=== PATIENT | male | born 1965 | race Caucasian/White ===

== ENCOUNTER 2017-12-31 13:19 | Emergency (ER) | payer MEDICARE ==
[2017-12-31 15:14] VITALS: BP 114/77
--- NOTE | 2017-12-31 15:56 | UC ---
Skin Complaint HPI - HPI Summary HPI Summary: pt noted some tingly burning to his forehead saturday pm. saturday he noted a rash to his central forehead that is getting bigger. there is no pain or fever. he has had cellulitis in the past and notes this is different. no relief with neosporin. - History of Current Complaint Chief Complaint: UCSkin Time Seen by Provider: 12/31/17 15:49 Stated Complaint: RASH ON FOREHEAD Hx Obtained From: Patient Onset/Duration: Gradual Onset Timing: Constant Pain Intensity: 0 - Allergy/Home Medications Allergies/Adverse Reactions: Allergies Allergy/AdvReac Type Severity Reaction Status Date / Time Sulfa (Sulfonamide Allergy Hives Verified 12/31/17 15:15 Antibiotics) Home Medications: Home Medications Acetaminophen [Acetaminophen ER] 650 mg PO DAILY 12/31/17 [History Confirmed 09/19] Review of Systems Constitutional: Negative Skin: Rash Eyes: Negative ENT: Negative Respiratory: Negative Cardiovascular: Negative Gastrointestinal: Negative Genitourinary: Negative Motor: Negative Neurovascular: Negative Musculoskeletal: Negative Neurological: Negative Psychological: Negative Is Patient Immunocompromised?: No All Other Systems Reviewed And Are Negative: Yes PMH/Surg Hx/FS Hx/Imm Hx - Additional Past Medical History Additional PMH: cellulitis on leg - Surgical History Surgical History: Yes Surgery Procedure, Year, and Place: bariatric surgery 2013. [place]. T&A - Family History Known Family History: Positive: None - Social History Occupation: Employed Full-time Lives: With Family Alcohol Use: Occasionally Substance Use Type: None Smoking Status (MU): Heavy Every Day Tobacco Smoker - Immunization History Vaccination Up to Date: Yes Physical Exam Triage Information Reviewed: Yes Appearance: Well-Appearing Vital Signs: Initial Vital Signs Temp 97.9 F 12/31/17 15:10 Pulse 60 12/31/17 15:10 Resp 18 12/31/17 15:10 BP 114/77 12/31/17 15:10 Pulse Ox 99 12/31/17 15:10 Vital Signs Reviewed: Yes Eyes: Positive: Conjunctiva Clear ENT: Positive: Pharynx normal, TMs normal, Other - no auricular adenopathy. Negative: Nasal congestion, Nasal drainage Neck: Positive: Supple, Nontender, No Lymphadenopathy Respiratory: Positive: Lungs clear, Normal breath sounds Cardiovascular: Positive: RRR, No Murmur Abdomen Description: Positive: Nontender, No Organomegaly, Soft Bowel Sounds: Positive: Present Musculoskeletal: Positive: ROM Intact Neurological: Positive: Alert Psychological: Positive: Age Appropriate Behavior Skin Exam: Normal Skin: Positive: rashes - moderate sized almost confluent oval shaped rash to center for forehead and second area of 1cm to L of rash. areas are red, raised and moist to center of larger area. non tender and not warm. no scale, not petechial-viral culture obtained. Course/Dx - Course Course Of Treatment: non toxic, not fungal and not c/w cellulitis. ? herpetic, viral culture is pending. pattern not suggestive of shingles. pattern somewhat c /w hat rim thus a contact dermatitis is possible. will d/c neosporin as it is not helping. will tx low dose po steroid x 3 days and refer to dermatology. - Diagnoses Provider Diagnoses: acute rash to forehead Discharge - Sign-Out/Discharge Documenting (check all that apply): Discharge/Admit/Transfer - Discharge Plan Condition: Stable Disposition: HOME Prescriptions: predniSONE TAB* [Deltasone TAB*] 20 mg PO DAILY #3 tab Patient Education Materials: Acute Rash (ED) Referrals: Jonn Dean MD [Medical Doctor] - As Soon As Possible Additional Instructions: STOP THE NEOSPORIN. - Billing Disposition and Condition Condition: STABLE Disposition: HOME
== END 2017-12-31 16:13 | disposition home or self-care (01) ==
LOC: UCCORT 13:19
DX: R21 Rash and other nonspecific skin eruption (principal); Z88.2 Allergy status to sulfonamides
CPT/HCPCS: 87529; 87798; 99202; G0463

== ENCOUNTER 2019-06-30 10:52 | Emergency (ER) | payer MEDICARE ==
[2019-06-30 11:35] VITALS: BP 136/80
--- NOTE | 2019-06-30 12:25 | UC ---
UC General HPI - HPI Summary HPI Summary: Patient presents to urgent care for evaluation of gross hematuria that started today. Patient states approximately one hour prior to arrival he was at [facility]. Patient states when he went to the restroom he passed bright red blood with some clots. Patient has had 2 more episodes of similar since he's been here. Patient has never had anything like this before patient denies nausea or vomiting. No back pain. No trauma. No penile pain. No dysuria or hematuria. No difficulty with urgency. Patient without any blood in his stool. No diarrhea. No trauma. No pain with erection or ejaculation. Patient is not on any blood thinners. Patient does take Motrin intermittently. Patient does not have a primary care provider since coming to call in 2 years ago. Patient does have a history kidney stones and states this feels nothing like this. Patient does smoke one plus packs of cigarettes a day. Patient denies any trauma. Patient denies any penile discharge, itching, or lesions. Patient's medications reviewed this visit. - History of Current Complaint Chief Complaint: UCGU Stated Complaint: BLOOD IN URINE Time Seen by Provider: 06/30/19 11:55 Hx Obtained From: Patient, Family/Bottle Hop Pain Intensity: 0 - Allergy/Home Medications Allergies/Adverse Reactions: Allergies Allergy/AdvReac Type Severity Reaction Status Date / Time Sulfa (Sulfonamide Allergy Hives Verified 06/30/19 11:26 Antibiotics) Home Medications: Home Medications Ibuprofen TAB* [Advil TAB*] 400 mg PO Q6H PRN 06/30/19 [History Confirmed ] PMH/Surg Hx/FS Hx/Imm Hx Previously Healthy: Yes - Surgical History Surgical History: Yes Surgery Procedure, Year, and Place: bariatric surgery 2013. [place]. T&A - Family History Known Family History: Positive: Non-Contributory - Social History Occupation: Employed Full-time Lives: With Family Alcohol Use: Occasionally Substance Use Type: None Smoking Status (MU): Heavy Every Day Tobacco Smoker Type: Cigarettes Amount Used/How Often: 1 ppd Length of Time of Smoking/Using Tobacco: over 25 yrs Have You Smoked in the Last Year: Yes - Immunization History Vaccination Up to Date: Yes Review of Systems All Other Systems Reviewed And Are Negative: Yes Constitutional: Positive: Negative Skin: Positive: Negative - Vital Genitourinary: Positive: Hematuria Is Patient Immunocompromised?: No Physical Exam - Summary Physical Exam Summary: Vital Signs Reviewed: Yes A+Ox3, no distress Eyes: Conjunctiva Clear, ENT: Hearing grossly normal mmoist, no exudate, no erythema Neck: Positive: Supple Respiratory: Positive: No respiratory distress, No accessory muscle use + CTA throughout no w/r Cardiovascular: RRR nl s1, s2 no m/r CBT <2 sec abd soft no cva Musculoskeletal Exam: ROSE x 4 without difficulty Strength Intact, ROM Intact Neurological: Positive: Alert, + sensation throughout Psychological: Positive: Normal Response To examiner Skin: Positive: no rash, no ecchymosis Triage Information Reviewed: Yes Vital Signs: Initial Vital Signs Temp 98.2 F 06/30/19 11:27 Pulse 65 06/30/19 11:27 Resp 16 06/30/19 11:27 BP 136/80 06/30/19 11:27 Pulse Ox 99 06/30/19 11:27 Course/Dx - Course Course Of Treatment: Patient presents to urgent care reporting gross hematuria started 1 hour prior to arrival. Patient states he had bright red blood and clots. Patient has 2 more episodes of similar symptoms. Patient without any complaints. Patient does have a remote history of kidney stones but states this feels nothing like that. Patient is not on any anticoagulation. Patient does not have a PCP locally. On exam vital signs are stable. Patient in no distress. Patient's urinalysis was positive for US except for glucose. A long discussion with patient and his uncle who is here with him. Worried the patient may have some underlying pathology that can't test for here to urgent care. Recommend patient to the emergency department. After discussion patient in agreement. I spoke to Sunita Schmid, nurse practitioner in the emergency department and aware pt coming POV. - Diagnoses Provider Diagnosis: Hematuria Discharge ED - Sign-Out/Discharge Documenting (check all that apply): Patient Departure All imaging exams completed and their final reports reviewed: No Studies - Discharge Plan Condition: Stable Disposition: HOME-RECOMMEND TO ED Patient Education Materials: Hematuria (ED) Referrals: Non Staff,Doctor [Primary Care Provider] - Additional Instructions: The doctor that evaluated you today thinks that you need additional testing that can be completed the emergency department. It is recommended that you go directly to emergency department for further evaluation. This evaluation included blood work or imaging. This testing will be directed and decided by the provider that evaluates you at the emergency department. If pain becomes worse, you feel lightheaded, you have uncontrolled vomiting, or you have any other concerns while you are being driven to emergency department as recommended to pullover contact 911. You will be triaged and treated according to the process at the emergency department where you are evaluated. - Billing Disposition and Condition Condition: STABLE Disposition: Home-Recommend to ED
== END 2019-06-30 12:21 | disposition home health service (06) ==
LOC: UCCORT 10:52
DX: R31.9 Hematuria, unspecified (principal); F17.210 Nicotine dependence, cigarettes, uncomplicated; Z87.442 Personal history of urinary calculi; Z88.2 Allergy status to sulfonamides
CPT/HCPCS: 81003; 87086; 99212; G0463

== ENCOUNTER 2019-11-13 10:09 | Emergency (ER) | payer MEDICARE ==
--- OUTSIDE RECORDS SUMMARY | 2019-11-13 10:23 | XMS REPORT | Continuity of Care Document ---
:1965 External Reference #:[id number] Author Name Adriel Delgado M.D. Address [address] [place] [address] Care Team Providers Name Role Phone Adriel Delgado M.D. - Urology Care Team Information Communication Technician [phone] Problems Active Problems Provider Date Malignant tumor of urinary bladder Adriel Delgado M.D. Onset: 10/12/2019 Social History Type Date Description Comments Sex Unknown Tobacco Use Start: Unknown Heavy tobacco smoker (more than 10 cigarettes/day) Smoking Status Reviewed: 08/28/19 Heavy tobacco smoker (more than 10 cigarettes/day) Allergies, Adverse Reactions, Alerts Active Allergies Reaction Severity Comments Date Sulfa Drugs Flushing, Hives, Itching Severe 07/02/2019 Medications Active Medications SIG Qnty Indications Ordering Provider Date Keflex 1 by mouth once 1caps Adriel Delgado, 10/12/2019 500mg Capsules given in office M.D. before procedure - verbal order from Dr. Delgado Ibuprofen 2 Times A Day Unknown 400mg Tablets History Medications Oxybutynin Chloride 1 by mouth every 30tabs Adriel Delgado, 07/03/2019 - ER day M.D. 10/12/2019 10mg Tablets ER 24HR Immunizations Description No Information Available Vital Signs Date Vital Result Comment 10/12/2019 1:28pm BP Systolic 139 mmHg BP Diastolic 76 mmHg Body Temperature 97.8 F Heart Rate 78 /min Respiratory Rate 16 /min Height 67.5 inches 5'7.50" Weight 214.00 lb Pain Level 0 BMI (Body Mass Index) 33.0 kg/m2 BSA (Body Surface Area) 2.09 m2 [place] body weight in kilograms 68 kg O2 % BldC Oximetry 97 % 07/06/2019 9:20am BP Systolic 132 mmHg BP Diastolic 75 mmHg Body Temperature 99.0 F Heart Rate 71 /min Respiratory Rate 16 /min Height 67.5 inches 5'7.50" Weight 187.00 lb Pain Level 0 BMI (Body Mass Index) 28.9 kg/m2 BSA (Body Surface Area) 1.98 m2 [place] body weight in kilograms 68 kg O2 % BldC Oximetry 96 % Results Test Acquired Date Facility Test Result H/L Range Note Urine Dipstick 10/12/2019 [facility] Inhouse Ua Color Yellow Yellow Ua Clarity Clear Clear Ua Leuko Negative Negative Ua Nitrite Negative Low Ua Urobilinogen 0.2 0.2 - 1.0 E.U./L Ua Protein Negative Negative Ua PH 6.0 Low 6.5-7.5 Ua Blood Negative Negative Ua Specific [place] 1.030 1.010-1.030 Ua Ketones Negative Negative Ua Bilirubin Negative Negative Ua Glucose Negative Negative GFR/Bsa 06/30/2019 N2N/CCD Import Estimated GFR >60 >60 pred.black SerPl () MDRD-ArVRat BUN/Creat SerPl 06/30/2019 N2N/CCD Import BUN/Creatinine 26.6 Ratio Sodium 06/30/2019 N2N/CCD Import Sodium Level 139 136-145 SerPl-sCnc Potassium 06/30/2019 N2N/CCD Import Potassium Level 4.1 3.5-5.1 SerPl-sCnc Chloride 06/30/2019 N2N/CCD Import Chloride Level 107 98-107 SerPl-sCnc Co2 SerPl-sCnc 06/30/2019 N2N/CCD Import Carbon Dioxide 29 21-32 Level Anion Gap 06/30/2019 N2N/CCD Import Anion Gap 3 Low 8-16 SerPl-sCnc Calcium 06/30/2019 N2N/CCD Import Calcium Level 8.7 8.5-10.1 SerPl-mCnc Prot SerPl-mCnc 06/30/2019 N2N/CCD Import Total Protein 7.8 6.4-8.2 Albumin 06/30/2019 N2N/CCD Import Albumin 3.4 3.4-5.0 SerPl-mCnc Globulin Ser 06/30/2019 N2N/CCD Import Globulin 4.4 High 1.9-4.3 Calc-mCnc Albumin/Glob 06/30/2019 N2N/CCD Import Albumin/Globulin 0.8 SerPl Ratio Bilirub 06/30/2019 N2N/CCD Import Total Bilirubin 0.4 0.2-1.0 SerPl-mCnc Ast SerPl-cCnc 06/30/2019 N2N/CCD Import Aspartate Amino 10 Low 15-37 Transf (Ast/Sgot) Alt SerPl-cCnc 06/30/2019 N2N/CCD Import Alanine 23 12-78 Aminotransferase (Alt/SGPT) Alp SerPl-cCnc 06/30/2019 N2N/CCD Import Alkaline 65 45-117 Phosphatase Color Ur Auto 06/30/2019 N2N/CCD Import Urine Color Red Yellow Appearance Ur 06/30/2019 N2N/CCD Import Urine Clarity Cloudy Clear Glucose Ur Ql 06/30/2019 N2N/CCD Import Urine Glucose (Ua) Negative Negative Strip.auto Bilirub Ur Ql 06/30/2019 N2N/CCD Import Urine Bilirubin Negative Negative Strip.auto Ketones Ur Ql 06/30/2019 N2N/CCD Import Urine Ketones Negative Negative Strip.auto Sp Gr Ur 06/30/2019 N2N/CCD Import Urine Specific 1.018 1.010-1.030 Refractometry [place] Hgb Ur Ql 06/30/2019 N2N/CCD Import Urine Blood Large High Negative Strip.auto pH Ur Strip.auto 06/30/2019 N2N/CCD Import Urine pH 6.5 6.5-7.5 Prot Ur Ql 06/30/2019 N2N/CCD Import Urine Protein 100 High Negative Strip.auto Urobilinogen Ur 06/30/2019 N2N/CCD Import Urine Urobilinogen < 2.0 < 2.0 Ql Strip.auto Nitrite Ur Ql 06/30/2019 N2N/CCD Import Urine Nitrite Negative Negative Strip.auto Leukocyte 06/30/2019 N2N/CCD Import Urine Leukocyte Small High Negative esterase Ur Ql Esterase Strip.auto Lab Results 06/30/2019 N2N/CCD Import Urine RBC > 50 High 0-2 WBC #/area UrnS 06/30/2019 N2N/CCD Import Urine WBC 3-5 0-5 HPF Miscellaneous 06/30/2019 N2N/CCD Import N/A Test(s) studies added WBC # XXX Auto 06/30/2019 N2N/CCD Import White Blood Count 9.0 3.4-10.5 RBC # Bld Auto 06/30/2019 N2N/CCD Import Red Blood Count 5.15 4.20-5.80 Hgb Bld-mCnc 06/30/2019 N2N/CCD Import Hemoglobin 16.3 12.8-17.0 Hct VFr Bld Auto 06/30/2019 N2N/CCD Import Hematocrit 48.9 High 38.0- 48.0 MCV RBC Auto 06/30/2019 N2N/CCD Import Mean Corpuscular 95.0 80.0-96.0 Volume MCH RBC Qn Auto 06/30/2019 N2N/CCD Import Mean Corpuscular 31.7 27.0- 33.0 Hemoglobin MCHC RBC 06/30/2019 N2N/CCD Import Mean Corpuscular 33.3 31.7-36.0 Auto-mCnc Hemoglobin Concent Platelet # Bld 06/30/2019 N2N/CCD Import Platelet Count 228 155-360 Auto RDW RBC Auto 06/30/2019 N2N/CCD Import Red Cell 46.9 36-51 Distribution Width RDW RBC Auto-Rto 06/30/2019 N2N/CCD Import RDW Coefficient of 13.4 11.6- 15.8 Variation PMV Bld Auto 06/30/2019 N2N/CCD Import Mean Platelet 11.0 High 6.6-10.6 Volume Neutrophils/leuk 06/30/2019 N2N/CCD Import Neutrophils (%) 59.6 33.0- 73.0 NFr Bld Auto (Auto) Lymphocytes/leuk 06/30/2019 N2N/CCD Import Lymphocytes (%) 26.2 20.0- 42.0 NFr Bld Auto (Auto) Monocytes/leuk 06/30/2019 N2N/CCD Import Monocytes (%) 10.7 High 0.0- 10.0 NFr Bld Auto (Auto) Eosinophil/leuk 06/30/2019 N2N/CCD Import Eosinophils (%) 3.0 0.0-6.6 NFr Bld Auto (Auto) Basophils/leuk 06/30/2019 N2N/CCD Import Basophils (%) 0.2 0.0-1.1 NFr Bld Auto (Auto) Imm 06/30/2019 N2N/CCD Import Immature 0.3 0.0-5.0 Granulocytes/malena Granulocyte % k NFr Bld Auto (Auto) nRBC/100 WBC Bld 06/30/2019 N2N/CCD Import Nucleated Red Blood 0.0 < 10 / 100 Auto-Rto Cells % (auto) WBC Neutrophils # 06/30/2019 N2N/CCD Import Neutrophils # 5.34 1.8-7.0 Bld Auto (Auto) Lymphocytes # 06/30/2019 N2N/CCD Import Lymphocytes # 2.35 1.0-4.0 Bld Auto (Auto) Monocytes # Bld 06/30/2019 N2N/CCD Import Monocytes # (Auto) 0.96 High 0.0-0.8 Auto Eosinophil # Bld 06/30/2019 N2N/CCD Import Eosinophils # 0.27 0.0-0.5 Auto (Auto) Basophils # Bld 06/30/2019 N2N/CCD Import Basophils # (Auto) 0.02 0.0- 0.1 Auto Imm Granulocytes 06/30/2019 N2N/CCD Import Immature 0.03 # Bld Auto Granulocyte # (Auto) nRBC # Bld Auto 06/30/2019 N2N/CCD Import Nucleated RBC 0.00 Absolute Count (auto) Prothrombin time 06/30/2019 N2N/CCD Import Prothrombin Time 13.7 12.0- 14.4 Inr PPP 06/30/2019 N2N/CCD Import Inr International 1.0 0.9-1.1 Normalized Ratio Glucose 06/30/2019 N2N/CCD Import Glucose Screen 99 74-106 SerPl-[facility] BUN SerPl-mCnc 06/30/2019 N2N/CCD Import Blood Urea Nitrogen 16 7-18 Creat SerPl-mCnc 06/30/2019 N2N/CCD Import Creatinine 0.6 0.6-1.3 GFR/Bsa pred.non 06/30/2019 N2N/CCD Import Estimated GFR >60 >60 black SerPl (Non- MDRD-ArVRat [place] Procedures Date Code Description Status 10/12/2019 20515 Cystoscopy Completed 07/01/2019 21055 Cystourethroscopy W/ Fulguration/Resect Med Bladder Tumor Completed 07/01/2019 35136 Cystourethroscopy W/Catheterization Completed 06/30/2019 60035 Irrigation Of Bladder Completed Medical Devices Description No Information Available Encounters Type Date Location Provider Dx Diagnosis Office Visit 07/06/2019 8:45a Urology Tobi Sousa, FRANCO R31.0 Gross hematuria Office Visit 07/02/2019 10:45a Urology Tobi Sousa PA R31.0 Gross hematuria Assessments Date Code Description Provider 10/12/2019 C67.9 Malignant neoplasm of bladder, unspecified Adriel Delgado M.D. 07/06/2019 R31.0 Gross hematuria Tobi Sousa PA 07/02/2019 R31.0 Gross hematuria Tobi Sousa PA 07/01/2019 R31.0 Gross hematuria Adriel Delgado M.D. 07/01/2019 N32.9 Bladder disorder, unspecified Adriel Delgado M.D. 06/30/2019 R31.0 Gross hematuria Adriel Delgado M.D. Plan of Treatment 10/12/2019 - Adriel Delgado M.D.C67.9 Malignant neoplasm of bladder, unspecifiedComments:Preoperative papillary neoplasm of the bladder with low malignant potential. Cystoscopy today showsa new area that is small on the left lateral wall. Discussed with the patient resection of the areaand is agreeable to proceed with anesthesia.. Functional Status Description No Information Available Mental Status Description No Information Available Referrals Description No Information Available
--- OUTSIDE RECORDS SUMMARY | 2019-11-13 10:23 | XMS REPORT | Continuity of Care Document ---
:1965 External Reference #:[id number] Author Name Adriel Delgado M.D. (transmitted by agent of provider Maurice Pollard) Address [address] [address] Care Team Providers Name Role Phone Adriel Delgado M.D. 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 Onset: 10/12/2019 Social History Type Date Description Comments Sex Unknown Tobacco Use Start: Unknown Heavy tobacco smoker (more than 10 cigarettes/day) Smoking Status Reviewed: 11/05/19 Heavy tobacco smoker (more than 10 cigarettes/day) Allergies, Adverse Reactions, Alerts Active Allergies Reaction Severity Comments Date Sulfa Drugs Flushing, Hives, Itching Severe 07/02/2019 Medications Active Medications SIG Qnty Indications Ordering Provider Date Ibuprofen 2 Times A Day Unknown 400mg Tablets History Medications Keflex 1 by mouth once 1caps Adriel Delgado, 10/12/2019 - 500mg Capsules given in office M.D. 10/13/2019 before procedure - verbal order from Dr. Delgado Oxybutynin Chloride 1 by mouth every 30tabs Adriel Delgado, 07/03/2019 - ER day M.D. 10/12/2019 10mg Tablets ER 24HR Immunizations Description No Information Available Vital Signs Date Vital Result Comment 11/05/2019 9:16am BP Systolic 146 mmHg Pt nervous BP Diastolic 108 mmHg Pt nervous Body Temperature 96.9 F Heart Rate 74 /min Respiratory Rate 16 /min Height 67.5 inches 5'7.50" Weight 214.25 lb Pain Level 0 BMI (Body Mass Index) 33.1 kg/m2 BSA (Body Surface Area) 2.09 m2 [place] body weight in kilograms 68 kg O2 % BldC Oximetry 98 % 10/12/2019 1:28pm BP Systolic 139 mmHg BP Diastolic 76 mmHg Body Temperature 97.8 F Heart Rate 78 /min Respiratory Rate 16 /min Height 67.5 inches 5'7.50" Weight 214.00 lb Pain Level 0 BMI (Body Mass Index) 33.0 kg/m2 BSA (Body Surface Area) 2.09 m2 [place] body weight in kilograms 68 kg O2 % BldC Oximetry 97 % Results Test Acquired Date Facility Test Result H/L Range Note Urine Dipstick 10/12/2019 RMP Inhouse Ua Color Yellow Yellow Ua Clarity Clear Clear Ua Leuko Negative Negative Ua Nitrite Negative Low Ua Urobilinogen 0.2 0.2 - 1.0 E.U./L Ua Protein Negative Negative Ua PH 6.0 Low 6.5-7.5 Ua Blood Negative Negative Ua Specific [place] 1.030 1.010-1.030 Ua Ketones Negative Negative Ua [...] N2N/CCD Import Urine Specific 1.018 1.010-1.[address] Hgb Ur Ql 06/30/2019 N2N/CCD Import Urine [...] 06/30/2019 N2N/CCD Import Glucose Screen 99 74-106 [facility] BUN SerPl-nc 06/30/2019 N2N/CCD Import Blood Urea Nitrogen 16 7-18 Creat SerPl-mCnc 06/30/2019 N2N/CCD Import Creatinine 0.6 0.6-1.3 GFR/Bsa pred.non 06/30/2019 N2N/CCD Import Estimated GFR >60 >60 black SerPl (Non- MDRD-ArVRat [place] Procedures Date Code Description Status 10/26/2019 14725 Cystourethroscopy W/ Fulguration/Resect Small Bladder Completed Tumor 10/12/2019 80504 Cystoscopy Completed 07/01/2019 29178 Cystourethroscopy W/ Fulguration/Resect Med Bladder Tumor Completed 07/01/2019 56132 Cystourethroscopy W/Catheterization Completed 06/30/2019 51561 Irrigation Of Bladder Completed Medical Devices Description No Information Available Encounters Type Date Location Provider Dx Diagnosis Office Visit 10/12/2019 Urology Adriel Delgado, C67.9 Malignant neoplasm of 1:15p M.D. bladder, unspecified Office Visit 07/06/2019 Urology Tobi Sousa, R31.0 Gross hematuria 8:45a PA Office Visit 07/02/2019 Urology Tobi Sousa R31.0 Gross hematuria 10:45a PA Assessments Date Code Description Provider 10/26/2019 C67.9 Malignant neoplasm of bladder, unspecified Adriel Delgado M.D. 10/26/2019 F17.210 Nicotine dependence, cigarettes, Adriel Delgado M.D. uncomplicated 10/26/2019 Z98.84 Bariatric surgery status Adriel Delgado M.D. 10/12/2019 C67.9 Malignant neoplasm of bladder, unspecified Adriel Delgado M.D. 07/06/2019 R31.0 Gross hematuria Tobi Sousa PA 07/02/2019 R31.0 Gross hematuria Tobi Sousa PA 07/01/2019 R31.0 Gross hematuria Adriel Delgado M.D. 07/01/2019 N32.9 Bladder disorder, unspecified Adriel Delgado M.D. 06/30/2019 R31.0 Gross hematuria Adriel Delgado M.D. Plan of Treatment No Information Available Functional Status Description No Information Available Mental Status Description No Information Available Referrals Description No Information Available
--- OUTSIDE RECORDS SUMMARY | 2019-11-13 10:23 | XMS REPORT | Continuity of Care Document ---
:1965 External Reference #:[id number] Author Name Adriel Delgado M.D. (transmitted by agent of provider Camryn Sanders) Address [address] [address] Care Team Providers Name Role Phone Adriel Delgado M.D. - Urology Care Team Information Bander Hand [phone] Problems Active Problems Provider Date Malignant tumor [...] kg/m2 BSA (Body Surface Area) 2.09 m2 [place] body weight in kilograms 68 kg O2 % BldC Oximetry 98 % 10/12/2019 1:28pm BP Systolic 139 mmHg BP Diastolic 76 mmHg Body Temperature 97.8 F Heart Rate 78 /min Respiratory Rate 16 /min Height 67.5 inches 5'7.50" Weight 214.00 lb Pain Level 0 BMI (Body Mass Index) 33.0 kg/m2 BSA (Body Surface Area) 2.09 m2 [place] body weight in kilograms 68 kg O2 [...] 6.5-7.5 Ua Blood Negative Negative Ua Specific [place] 1.030 1.010-1.030 Ua Ketones Negative Negative Ua [...] N2N/CCD Import Urine Specific 1.018 1.010-1.030 Refractometry [place] Hgb Ur Ql 06/30/2019 N2N/CCD Import Urine [...] 06/30/2019 N2N/CCD Import Glucose Screen 99 74-106 [facility] BUN SerPl-nc 06/30/2019 N2N/CCD Import Blood Urea Nitrogen 16 7-18 Creat SerPl-mCnc 06/30/2019 N2N/CCD Import Creatinine 0.6 0.6-1.3 GFR/Bsa pred.non 06/30/2019 N2N/CCD Import Estimated GFR >60 >60 black SerPl (Non- MDRD-ArVRat [place] Procedures Date Code Description Status 10/26/2019 37813 Cystourethroscopy W/ Fulguration/Resect Small Bladder Completed Tumor 10/12/2019 31227 Cystoscopy Completed 07/01/2019 05163 Cystourethroscopy W/ Fulguration/Resect Med Bladder Tumor Completed 07/01/2019 29353 Cystourethroscopy W/Catheterization Completed 06/30/2019 14587 Irrigation Of Bladder Completed Medical Devices Description No Information Available Encounters Type Date Location Provider Dx Diagnosis Office Visit 11/05/2019 Urology Adriel Delgado C67.9 Malignant neoplasm of 9:15a M.D. bladder, unspecified Office Visit 10/12/2019 Urology Adriel Delgado C67.9 Malignant neoplasm of 1:15p M.D. bladder, unspecified Office Visit 07/06/2019 Urology Tobi Sousa, R31.0 Gross hematuria 8:45a PA Office Visit 07/02/2019 Urology Tobi Sousa R31.0 Gross hematuria 10:45a PA Assessments Date Code Description Provider 11/05/2019 C67.9 Malignant neoplasm of bladder, unspecified Adriel Delgado M.D. 10/26/2019 C67.9 Malignant neoplasm of bladder, unspecified [...] hematuria Adriel Delgado M.D. Plan of Treatment Future Appointment(s):05/10/2020 9:00 am - Adriel Delgado M.D. 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 Recent bladder biopsies in October 2019 showed no evidence of recurrence. Will have patient come back in 6 months for surveillance cystoscopy. Functional Status Description No Information Available Mental Status Description No Information Available Referrals Description No Information Available
[2019-11-13 10:31] VITALS: BP 126/82
--- NOTE | 2019-11-13 10:37 | UC ---
Throat Pain/Nasal Benjamin HPI - HPI Summary HPI Summary: 54-year-old male who comes in with head congestion over the past 3 days. He states that he gets this annually with the change of weather. He also stopped smoking 2 weeks ago. - History of Current Complaint Chief Complaint: UCGeneralIllness Stated Complaint: CONGESTION Time Seen by Provider: 11/13/19 10:36 Hx Obtained From: Patient Onset/Duration: Gradual Onset Severity: Mild Pain Intensity: 0 Associated Signs & Symptoms: Positive: Sinus Discomfort, Nasal Discharge Related History: Seasonal Allergies - Allergies/Home Medications Allergies/Adverse Reactions: Allergies Allergy/AdvReac Type Severity Reaction Status Date / Time Sulfa (Sulfonamide Allergy Hives Verified 11/13/19 10:31 Antibiotics) Home Medications: Home Medications Dm/P-Ephed/Acetaminoph/Doxylam [Arielle [place] Plus Severe 10-12.5-20-650 mg] 1 pow PO ONCE PRN 11/13/19 [History Confirmed 11/13/19] Fluticasone NASAL SPRAY 50MCG* [Flonase NASAL SPRAY 50MCG*] 2 spray BOTH NARES DAILY 7 Days #1 btl 11/13/19 [Rx] Naproxen Sodium [Aleve] 220 mg PO ONCE PRN 11/13/19 [History Confirmed 11/13/19] PMH/Surg Hx/FS Hx/Imm Hx Previously Healthy: Yes Cardiovascular History: Hypertension - Surgical History Surgical History: Yes Surgery Procedure, Year, and Place: bariatric surgery 2013. [facility]. T&A. cyst removed from bladder(cancerous) - Family History Known Family History: Positive: None, Non-Contributory - Social History Alcohol Use: Occasionally Substance Use Type: None Smoking Status (MU): Former Smoker Type: Cigarettes Amount Used/How Often: 1 ppd Length of Time of Smoking/Using Tobacco: over 25 yrs Have You Smoked in the Last Year: Yes When Did the Patient Quit Smoking/Using Tobacco: Oct 2019 - Immunization History Vaccination Up to Date: Yes Review of Systems All Other Systems Reviewed And Are Negative: Yes ENT: Positive: Nasal Discharge, Sinus Congestion Respiratory: Positive: Cough - Nonproductive cough Is Patient Immunocompromised?: No Physical Exam Triage Information Reviewed: Yes Appearance: Well-Appearing, No Pain Distress, Well-Nourished Vital Signs: Initial Vital Signs Temp 97.7 F 11/13/19 10:26 Pulse 79 03/13/20 10:26 Resp 18 11/13/19 10:26 BP 126/82 11/13/19 10:26 Pulse Ox 98 11/13/19 10:26 Vital Signs Reviewed: Yes Eyes: Positive: Conjunctiva Clear ENT: Positive: Nasal congestion, Nasal drainage - Clear nasal coryza, TMs normal , Uvula midline Neck: Positive: Supple, Nontender, No Lymphadenopathy Respiratory: Positive: Lungs clear, Normal breath sounds, No respiratory distress, No accessory muscle use Cardiovascular: Positive: RRR, No Murmur, Pulses Normal, Brisk Capillary Refill Musculoskeletal Exam: Normal Neurological Exam: Normal Psychological Exam: Normal Skin Exam: Normal Throat Pain/Nasal Course/Dx - Course Course Of Treatment: The patient is comfortable here and in no distress. I feel this is more a mixture of him quitting smoking and his seasonal allergies. He's going to try Flonase for 2 weeks and follow-up with his primary care provider if he has no improvement in 4-5 days. - Differential Dx/Diagnosis Provider Diagnosis: Allergic rhinitis Discharge ED - Sign-Out/Discharge Documenting (check all that apply): Patient Departure All imaging exams completed and their final reports reviewed: No Studies - Discharge Plan Condition: Good Disposition: HOME Prescriptions: Fluticasone NASAL SPRAY 50MCG* [Flonase NASAL SPRAY 50MCG*] 2 spray BOTH NARES DAILY 7 Days #1 btl Patient Education Materials: Allergic Rhinitis (DC) Referrals: [facility] [Outside] No Primary Care Phys,NOPCP [Primary Care Provider] - Additional Instructions: Increase fluids, follow-up with your primary care provider if no improvement in 4-5 days. - Billing Disposition and Condition Condition: GOOD Disposition: Home
== END 2019-11-13 10:54 | disposition home or self-care (01) ==
LOC: UCCORT 10:09
DX: J30.9 Allergic rhinitis, unspecified (principal); I10 Essential (primary) hypertension; Z88.2 Allergy status to sulfonamides; Z87.891 Personal history of nicotine dependence
CPT/HCPCS: 99212; G0463